=== PATIENT | female | born 1990 | race Caucasian/White ===

== ENCOUNTER 2018-01-24 18:43 | Emergency (ER) | payer SELFPAY ==
[2018-01-24] MEDS ORDERED: NS 0.9% 1000 ML* 1,000 ML IV ONE (19:10)
[2018-01-24] MEDS ORDERED: Ketorolac INJ* 30 MG/ML 1 ML VIAL IV ONE (19:10)
[2018-01-24 20:09] LABS: ABS Basophils 0.1 10^3/ul (0-0.2); ABS Eosinophils 0.1 10^3/ul (0-0.6); ABS Lymphocytes 2.6 10^3/ul (1.0-4.8); ABS Monocytes 0.4 10^3/ul (0-0.8); ABS Neutrophils 5.2 10^3/ul (1.5-7.7); ABS Nucleated RBC 0 10^3/ul; Eosinophil % 1.2 % (0-6); Hematocrit 40 % (35-47); Hemoglobin 13.3 g/dl (12.0-16.0); Lymphocyte % 30.7 % (25-47); Mean Corpuscular HGB Conc 33 g/dl (31-36); Mean Corpuscular Hemoglobin 28 pg (27-31); Mean Corpuscular Volume 84 fL (80-97); Mean Platelet Volume 8.4 um3 (7.4-10.4); Nucleated Red Blood Cells % 0.1; Platelet Count 245 10^3/ul (150-450); Red Blood Count 4.77 10^6/ul (4.0-5.4); Red Cell Distribution Width 15 % (10.5-15); White Blood Count 8.3 10^3/ul (3.5-10.8)
[2018-01-24] MEDS ORDERED: ALPRAZolam TAB* 0.5 MG PO ONE (20:09)
[2018-01-24 20:13] LABS: Urine Appearance Clear; Urine Blood 1+ (Negative); Urine Color Yellow; Urine Ketones Negative (Negative); Urine Protein Negative (Negative); Urine Specific Gravity 1.015 (1.010-1.030); Urine Urobilinogen Negative (Negative)
[2018-01-24] MEDS ORDERED: Ketorolac INJ* 30 MG/ML 1 ML VIAL ONE (20:14)
[2018-01-24 20:26] LABS: EGFR Non-African American 98.3 (>60)
--- NOTE | 2018-01-24 21:00 | RAD ---
HISTORY: Right-sided pain, microhematuria COMPARISONS: None TECHNIQUE: Multiple transverse and longitudinal ultrasound images were obtained of the right kidney using grayscale and color Doppler imaging. FINDINGS: RIGHT KIDNEY: There is an echogenic focus of the lower pole of the right kidney, consistent with fat. There is no hydronephrosis or nephrolithiasis. The right kidney measures 12.3 x 5.4 x 4.6 cm. LEFT KIDNEY: No images are submitted of the left kidney BLADDER: No images are submitted of the bladder. AORTA AND IVC: No images are submitted of the vasculature. RETROPERITONEUM: Unremarkable. OTHER: None. IMPRESSION: FATTY LESION OF THE LOWER POLE OF THE RIGHT KIDNEY WHICH MAY REPRESENT AN ANGIOMYOLIPOMA VERSUS FAT WITHIN RENAL CORTICAL DEFECT. NO HYDRONEPHROSIS OR NEPHROLITHIASIS.
--- NOTE | 2018-01-24 21:18 | RAD ---
HISTORY: Right lower quadrant pain, status post hysterectomy COMPARISONS: None TECHNIQUE: Multiple transverse and longitudinal ultrasound images were obtained of the pelvis using grayscale, color Doppler, and spectral Doppler imaging using the endovaginal transducer. FINDINGS: UTERUS: The patient is status post hysterectomy. ENDOMETRIUM: The patient is status post hysterectomy. CUL-DE-SAC: There is no free fluid within the cul-de-sac. RIGHT OVARY: The right ovary measures 2.4 x 2.4 x 3.6 cm. Multiple follicles are noted. Normal arterial and venous waveforms are identifiable within the ovary on spectral Doppler imaging. LEFT OVARY: The left ovary measures 2 x 1.4 x 2.4 cm. Multiple follicles are noted. Normal arterial and venous waveforms are identifiable within the ovary on spectral Doppler imaging. BLADDER: The bladder is not well visualized. OTHER: None IMPRESSION: STATUS POST HYSTERECTOMY. NO SONOGRAPHIC FEATURES OF TORSION. PLEASE NOTE THAT PARTIAL OR INTERMITTENT TORSION MAY BE SONOGRAPHICALLY NORMAL.
--- NOTE | 2018-01-24 22:14 | ED ---
Jo-Ann Yost Julia, scribed for Nitin Yeboah MD on 01/24/18 at 1912 . GI/ HPI - HPI Summary HPI Summary: This patient is a 28 year old F presenting to [facility] with a chief complaint of RLQ abdominal pain that radiates to the back and into the right leg for the past four days significantly worsening in the past two days. The patient rates the pain 8/10 in severity. Patient reports mild intermittent nausea. Patient states symptoms are similar to previous right ovarian cysts. Patient typically manages symptoms with ibuprofen, heat, and rest, but has not been able to do so with current symptoms. Patient reports a history of ovarian cysts since the age of 11. After the of her two children she had a hysterectomy. She states it helped her symptoms for a while but eventually they returned. Between her two children she had a Merena IUD placed that resulted in PID. Patient reports complex pregnancies with both children, resulting in emergent c- sections. PMHx includes migraines, fibromyalgia, RA, gastric ulcers, depression , anxiety, and bipolar disorder. Medications include: 50mg Seroquel daily, 200mg of Lamictal daily, 800mg of Gabapentin BID, 40mg of Protonix BID, 50mg of Topamax BID, 500mg of Robaxin as needed, and 1mg of Xanax BID as needed. Patient has recently moved from [place] about a month ago, and has not been able to set up a primary care physician yet. She states she has ran out of Seroquel, Lamictal, and Gabapentin. She states that when these medications are not managed well, her medical symptoms including her ovarian cysts, migraines, and fibromyalgia intensify. - History of Current Complaint Chief Complaint: EDOBProblems Time Seen by Provider: 01/24/18 18:57 Stated Complaint: OB PROBLEM Hx Obtained From: Patient Onset/Duration: Started Days Ago, Worse Since - past two days Timing: Constant Severity: Moderate - 8/10 Pain Intensity: 8 Location of Pain: RLQ Additional Location for Females: Ovaries Pain Characteristics: Other: - previous cysts Pain Radiates to: Back, Inguinal Associated Signs and Symptoms: Positive: Nausea - Allergy/Home Medications Allergies/Adverse Reactions: Allergies Allergy/AdvReac Type Severity Reaction Status Date / Time sumatriptan [From Imitrex] Allergy Headache Verified 01/24/18 18:48 PMH/Surg Hx/FS Hx/Imm Hx GI History: Reports: Hx Ulcer History: Reports: Other Problems/Disorders - ovarian cysts Musculoskeletal History: Reports: Hx Rheumatoid Arthritis, Hx Fibromyalgia Neurological History: Reports: Hx Migraine Psychiatric History: Reports: Hx Anxiety, Hx Depression, Hx Bipolar Disorder - Surgical History Surgery Procedure, Year, and Place: appendecomy, c-sections, tubal ligation Infectious Disease History: No Infectious Disease History: Denies: Traveled Outside the [place] in Last 30 Days - Family History Known Family History: Positive: Hypertension - Social History Occupation: Employed Full-time Lives: With Family Review of Systems Negative: Fever Positive: Abdominal Pain - RLQ, Nausea Positive: flank pain All Other Systems Reviewed And Are Negative: Yes Physical Exam - Summary Physical Exam Summary: Appearance: Well-appearing, Well-nourished, lying in bed comfortably Skin: Warm, dry, no obvious rash Eyes: sclera anicteric, no conjunctiva pallor ENT: mucous membranes moist, pharynx appears normal Neck: Supple, nontender Respiratory: Clear to auscultation, no signs of respiratory distress Cardiovascular: Normal S1, S2. No murmurs. Normal distal pulses in tibial and radial bilaterally. Abdomen: Soft, , normal active bowel sounds present, RLQ tenderness Musculoskeletal: Normal, Strength/ROM Intact Neurological: A&Ox3, awake and alert, mentation is normal, speech is fluent and appropriate Psychiatric: affect is normal, does not appear anxious or depressed Triage Information Reviewed: Yes Vital Signs On Initial Exam: Initial Vitals Temp Pulse Resp BP Pulse Ox 97.9 F 96 16 123/76 100 01/24/18 18:49 01/24/18 18:49 01/24/18 18:49 01/24/18 18:49 01/24/18 18:49 Vital Signs Reviewed: Yes Diagnostics - Vital Signs Vital Signs Temp Pulse Resp BP Pulse Ox 01/24/18 18:49 97.9 F 96 16 123/76 100 - Laboratory Result Diagrams: 01/24/18 19:32 01/24/18 19:32 Lab Statement: Any lab studies that have been ordered have been reviewed, and results considered in the medical decision making process. - Additional Comments Diagnostic Additional Comments: A Renal US reveals, as per radiologist: FATTY LESION OF THE LOWER POLE OF THE RIGHT KIDNEY WHICH MAY REPRESENT AN ANGIOMYOLIPOMA VERSUS FAT WITHIN RENAL CORTICAL DEFECT. NO HYDRONEPHROSIS OR NEPHROLITHIASIS. A Transvaginal US reveals, as per radiologist: STATUS POST HYSTERECTOMY. NO SONOGRAPHIC FEATURES OF TORSION. PLEASE NOTE THAT PARTIAL OR INTERMITTENT TORSION MAY BE SONOGRAPHICALLY NORMAL. has reviewed these reports. Re-Evaluation - Re-Evaluation First Eval Re-Evaluation Time: 20:07 Comment: RN tells me pt refused toradol as it has a h/o causing anxiety. I am unaware of this being a side effect of this medication. I am reluctant to order/ rx opioids here, pt is new to the area, has no PCP, no existing f/u, and the nature of her complaint is chronic. Await results of US, if there are signs of severe pathology there can reconsider. GIGU Course/Dx - Diagnoses Provider Diagnoses: Pelvic pain Discharge - Sign-Out/Discharge Documenting (check all that apply): Discharge/Admit/Transfer - Discharge Plan Condition: Good Disposition: HOME Prescriptions: Gabapentin CAP(*) [Neurontin 400 mg CAP(*)] 800 mg PO BID #60 cap Methocarbamol TAB* [Robaxin 500 MG TAB*] 500 mg PO TID PRN #60 tab PRN Reason: Spasms - Back Pantoprazole TAB (NF) [Protonix TAB (NF)] 40 mg PO DAILY #30 tab Quetiapine Fumarate [Seroquel 50 mg tab] 50 mg PO DAILY #30 tab Topiramate TAB(*) [Topamax 25 MG tab] 50 mg PO BID #60 tab Patient Education Materials: Ovarian Cyst (ED) Referrals: No Primary Care Phys,NOPCP [Primary Care Provider] - - Billing Disposition and Condition Condition: GOOD Disposition: HOME The documentation as recorded by the Jo-Ann modi Julia accurately reflects the service I personally performed and the decisions made by me, Nitin Yeboah MD.
[2018-01-24 22:39] VITALS: BP 106/63
== END 2018-01-24 22:37 | disposition home or self-care (01) ==
LOC: ED 18:43
DX: R10.2 Pelvic and perineal pain (principal); R11.0 Nausea; N28.9 Disorder of kidney and ureter, unspecified; Z90.710 Acquired absence of both cervix and uterus; M06.9 Rheumatoid arthritis, unspecified; M79.7 Fibromyalgia; G43.909 Migraine, unspecified, not intractable, without status migrainosus; F41.9 Anxiety disorder, unspecified; F31.9 Bipolar disorder, unspecified; Z88.8 Allergy status to other drugs, medicaments and biological substances
CPT/HCPCS: 36415; 76775; 76830; 80053; 81003; 81015; 85025; 87086; 96361; 96374; 99284; A9270-GY; J1885